=== PATIENT | female | born 1980 | race Caucasian/White ===

== ENCOUNTER 2016-11-20 18:25 | Emergency (ER) | payer OTHER ==
[~2016-11-20] VITALS: Ht 149.9 cm; Wt 65.3 kg
--- NOTE | ~2016-11-20 | CR123 ---
[facility] A Service of [facility] RADIOLOGY TEXT RESULTS PATIENT: CLAUDINE LARSEN LOCATION: CFTX : 78 UNIT #: [id number] AGE: [address]: TERRANCE JOEL APRN SEX: F ORDER DR: [id number] [facility] [address] [place], [place] [address] [id number] E MR#: [id number] Acc #: [id number] NAME: CLAUDINE LARSEN : 1980 SEX: F STUDY DATE/TIME: 11/20/2016 19:18 UNIT: [facility] ROOM: STUDY DESCRIPTION: CR Foot 2 Views Lt Attending Physician: Terrance Joel Aprn Ordering Physician: Amy Cantrell P.A.-C. Primary Care Physician: No Primary Care Physician MEDICAL IMAGING REPORT This report is preliminary unless electronic signature is present EXAM Left foot HISTORY Foot pain and swelling after dropping a table on the foot 2 days ago. TECHNIQUE 3 views of the foot were obtained. FINDINGS The tarsal, metatarsal, and phalangeal elements are all anatomically normal in position and alignment. There are no articular defects. No fractures or radiopaque foreign bodies in the soft tissues are apparent. IMPRESSION Normal foot. Dictated by... Jim Nielsen M.D. THIS IS AN ELECTRONICALLY VERIFIED REPORT Jim Nielsen M.D. at 11/22/2016 7:08 AM RLF/joe TD: 11/21/2016 08:45 JOB #: [id number] MEDICAL IMAGING REPORT Page 1 of 1 COPY
== END 2016-11-20 21:24 | disposition home or self-care (01) ==
LOC: CFTX 18:25 → CED 18:25 → CFTX 21:20
DX: S90.32XA Contusion of left foot, initial encounter (principal); W20.8XXA Other cause of strike by thrown, projected or falling object, initial encounter; Y92.009 Unspecified place in unspecified non-institutional (private) residence as the place of occurrence of the external cause
CPT/HCPCS: 29540; 73620; 99283